=== PATIENT | female | born 1965 | race Caucasian/White ===

== ENCOUNTER 2023-01-31 14:17 | Emergency (ER) | payer BC, SELFPAY ==
[2023-01-31 14:26] VITALS: BP 139/74; PULSE 83; RESP 16; TEMP 36.8; O2SAT 94
[2023-01-31 14:36] VITALS: BP 139/74; PULSE 83; RESP 16; TEMP 36.8; O2SAT 94
== END 2023-01-31 15:08 | disposition left against medical advice (07) ==
PROVIDERS: Emergency Provider Nurse Practitioner; PCP Internal Medicine
DX: H92.01 Otalgia, right ear (principal)
CPT/HCPCS: 99199